=== PATIENT | female | born 1955 | race Caucasian/White ===

== ENCOUNTER 2018-10-27 07:10 | Inpatient (IN) | payer BC ==
[2018-10-27 08:28] LABS: INR 0.94; PROTIME 12.7 Sec (11.9-14.9)
[2018-10-27 08:29] LABS: PARTIAL THROMBOPLASTIN TIME 29.9 Sec (23.0-35.0)
[2018-10-27] MEDS ORDERED: CEFAZOLIN 2 GM/50 ML (PMX) 50 ML IVPB (08:30)
[2018-10-27] MEDS: SOD CHLORIDE 0.9% 1,000 ML IV (10:10)
[2018-10-27] MEDS ORDERED: ISOSULFAN BLUE 1% 5 ML INJ SC (12:02)
[2018-10-27] MEDS ORDERED: CEFAZOLIN 1 GM INJ (12:14)
[2018-10-27] MEDS ORDERED: PROPOFOL 20 ML (12:14)
[2018-10-27] MEDS ORDERED: MIDAZOLAM 1 MG/ML 2 ML INJ (12:15)
[2018-10-27] MEDS ORDERED: DEXAMETHASONE 4 MG/ML 5 ML INJ (12:16)
[2018-10-27] MEDS ORDERED: ONDANSETRON 4 MG INJ (12:17)
[2018-10-27] MEDS: ISOSULFAN BLUE 1% 5 ML INJ SC (12:47)
[2018-10-27] MEDS: HYDROmorphONE 1 MG/5 ML IV SYRINGE IV ×3 (15:15→17:37)
[2018-10-27] MEDS: ONDANSETRON 4 MG INJ IV (15:15)
[2018-10-27] MEDS ORDERED: HYDROCODONE/APAP (7.5/325) TAB GTB (18:00)
[2018-10-27] MEDS: D5W-0.45 NACL + KCL 20 MEQ 1,000 ML IV ×2 (18:26→21:42)
[2018-10-27 19:21] LABS: BLOOD UREA NITROGEN 15 mg/dl (7-20)
[2018-10-27] MEDS: HYDROmorphONE 0.5 MG/0.5 ML SYG IV (20:52)
[2018-10-27] MEDS: ENOXAPARIN 100 MG/ML SYG SC (21:02)
[2018-10-27] MEDS: WARFARIN 3 MG TAB PO (22:13)
[2018-10-28] MEDS: D5W-0.45 NACL + KCL 20 MEQ 1,000 ML IV (02:45)
[2018-10-28 06:53] LABS: WHITE BLOOD COUNT 9.6 10^3/ul (4.8-10.8)
[2018-10-28 06:53] LABS: ADD MAN DIFF? NO; BASOPHILS % 0.1 % (0.0-2.0); HEMATOCRIT 38.3 % (37.0-47.0); HEMOGLOBIN 12.6 g/dl (12.0-16.0); LYMPHOCYTES # 1.3 10^3/ul (0.8-2.9); LYMPHOCYTES % 13.9 % (15.0-51.0); MEAN CORPUSCULAR HEMOGLOBIN 28.8 pg (29.0-33.0); MEAN CORPUSCULAR HGB CONC 32.9 g/dl (32.0-37.0); MEAN CORPUSCULAR VOLUME 87.6 fl (82.0-101.0); MEAN PLATELET VOLUME 9.6 fl (7.4-10.4); MONOCYTE # 0.6 10^3/ul (0.3-0.9); MONOCYTES % 6.1 % (0.0-11.0); NEUTROPHIL # 7.6 10^3/ul (1.6-7.5); NEUTROPHILS % 79.6 % (39.0-77.0); PLATELET COUNT 200 10^3/UL (140-415); RED BLOOD COUNT 4.37 10^6/ul (4.20-5.40); RED CELL DISTRIBUTION WIDTH 12.3 % (11.5-14.5)
[2018-10-28 07:12] LABS: ALANINE AMINOTRANSFERASE 30 IU/L (13-69); ALBUMIN 3.8 g/dl (3.3-4.9); ALBUMIN/GLOBULIN RATIO 1.31; ALKALINE PHOSPHATASE 60 IU/L (42-121); ANION GAP 6 (5-13); ASPARTATE AMINO TRANSFERASE 23 IU/L (15-46); BLOOD UREA NITROGEN 16 mg/dl (7-20); CALCIUM 8.3 mg/dl (8.4-10.2); CARBON DIOXIDE 26 mmol/L (21-31); CHLORIDE 106 mmol/L (97-110); CREATININE 0.71 mg/dl (0.44-1.00); Estimated GFR > 60 mL/min (>60); GLUCOSE 146 mg/dl (70-220); POTASSIUM 4.5 mmol/L (3.5-5.1); SODIUM 138 mmol/L (135-144); TOTAL PROTEIN 6.7 g/dl (6.1-8.1)
[2018-10-28 07:15] LABS: INR 1.03; PROTIME 13.6 Sec (11.9-14.9); PT RATIO 1.1
[2018-10-28] MEDS: ENOXAPARIN 100 MG/ML SYG SC ×2 (09:32→20:38)
[2018-10-28] MEDS: HYDROmorphONE 0.5 MG/0.5 ML SYG IV (17:33)
[2018-10-28] MEDS: WARFARIN 3 MG TAB GTB (17:34)
[2018-10-29] MEDS: HYDROmorphONE 0.5 MG/0.5 ML SYG IV (04:34)
[2018-10-29 05:56] LABS: INR 1.52; PROTIME 18.4 Sec (11.9-14.9); PT RATIO 1.4
[2018-10-29] MEDS: ENOXAPARIN 100 MG/ML SYG SC ×2 (09:12→20:58)
[2018-10-29] MEDS: ONDANSETRON 4 MG INJ IV ×2 (09:31→22:00)
[2018-10-29] MEDS: SOD CHLORIDE 0.9% 1,000 ML IV ×2 (10:47→14:44)
[2018-10-29] MEDS: KETOROLAC 30 MG INJ IV ×2 (10:48→22:01)
[2018-10-29] MEDS: DOCUSATE SODIUM 100 MG CAP PO (16:20)
[2018-10-29] MEDS: WARFARIN 3 MG TAB GTB (16:49)
[2018-10-29 17:08] LABS: ADD MAN DIFF? NO
[2018-10-29 17:16] LABS: BASOPHIL # 0.1 10^3/ul (0.0-0.1); BASOPHILS % 0.7 % (0.0-2.0); EOSINOPHILS # 0.1 10^3/ul (0.0-0.5); EOSINOPHILS % 0.6 % (0.0-7.0); HEMATOCRIT 36.8 % (37.0-47.0); HEMOGLOBIN 11.8 g/dl (12.0-16.0); LYMPHOCYTES # 2.7 10^3/ul (0.8-2.9); LYMPHOCYTES % 27.5 % (15.0-51.0); MEAN CORPUSCULAR HEMOGLOBIN 29.2 pg (29.0-33.0); MEAN CORPUSCULAR HGB CONC 32.1 g/dl (32.0-37.0); MEAN CORPUSCULAR VOLUME 91.1 fl (82.0-101.0); MEAN PLATELET VOLUME 10.2 fl (7.4-10.4); MONOCYTE # 0.8 10^3/ul (0.3-0.9); MONOCYTES % 8.2 % (0.0-11.0); NEUTROPHILS % 62.6 % (39.0-77.0); PLATELET COUNT 204 10^3/UL (140-415); RED BLOOD COUNT 4.04 10^6/ul (4.20-5.40); RED CELL DISTRIBUTION WIDTH 12.8 % (11.5-14.5)
[2018-10-29 17:16] LABS: WHITE BLOOD COUNT 9.7 10^3/ul (4.8-10.8)
[2018-10-29 22:46] LABS: HEMATOCRIT 32.2 % (37.0-47.0); HEMOGLOBIN 10.5 g/dl (12.0-16.0)
[2018-10-30] MEDS: PANTOPRAZOLE (EC) 40 MG TAB PO (05:16)
[2018-10-30 05:20] LABS: ADD MAN DIFF? NO
[2018-10-30 05:31] LABS: BASOPHILS % 0.5 % (0.0-2.0); EOSINOPHILS # 0.1 10^3/ul (0.0-0.5); EOSINOPHILS % 1.2 % (0.0-7.0); HEMATOCRIT 30.6 % (37.0-47.0); HEMOGLOBIN 10.1 g/dl (12.0-16.0); LYMPHOCYTES % 24.7 % (15.0-51.0); MEAN CORPUSCULAR HEMOGLOBIN 29.3 pg (29.0-33.0); MEAN CORPUSCULAR VOLUME 88.7 fl (82.0-101.0); MEAN PLATELET VOLUME 9.7 fl (7.4-10.4); MONOCYTE # 0.8 10^3/ul (0.3-0.9); MONOCYTES % 9.5 % (0.0-11.0); NEUTROPHIL # 5.2 10^3/ul (1.6-7.5); NEUTROPHILS % 63.7 % (39.0-77.0); PLATELET COUNT 171 10^3/UL (140-415); RED BLOOD COUNT 3.45 10^6/ul (4.20-5.40); RED CELL DISTRIBUTION WIDTH 12.9 % (11.5-14.5)
[2018-10-30 05:31] LABS: WHITE BLOOD COUNT 8.1 10^3/ul (4.8-10.8)
[2018-10-30 05:51] LABS: INR 1.46; PROTIME 17.8 Sec (11.9-14.9); PT RATIO 1.4
[2018-10-30 05:52] LABS: ANION GAP 5 (5-13); BLOOD UREA NITROGEN 18 mg/dl (7-20); CALCIUM 7.9 mg/dl (8.4-10.2); CARBON DIOXIDE 27 mmol/L (21-31); CHLORIDE 107 mmol/L (97-110); CREATININE 0.71 mg/dl (0.44-1.00); Estimated GFR > 60 mL/min (>60); GLUCOSE 110 mg/dl (70-220); POTASSIUM 4.2 mmol/L (3.5-5.1); SODIUM 139 mmol/L (135-144)
[2018-10-30] MEDS: HYDROmorphONE 0.5 MG/0.5 ML SYG IV ×3 (08:48→21:14)
[2018-10-30] MEDS: ONDANSETRON 4 MG INJ IV ×3 (08:48→21:14)
[2018-10-30] MEDS: SOD CHLORIDE 0.9% 1,000 ML IV ×2 (08:53→23:20)
[2018-10-30] MEDS: ENOXAPARIN 100 MG/ML SYG SC ×3 (09:00→21:20)
[2018-10-30] MEDS: KETOROLAC 30 MG INJ IV ×2 (10:52→19:43)
[2018-10-30] MEDS: GABAPENTIN 100 MG CAP PO ×2 (12:28→21:14)
[2018-10-30 14:45] LABS: HEMATOCRIT 28.4 % (37.0-47.0); HEMOGLOBIN 9.5 g/dl (12.0-16.0)
[2018-10-30] MEDS: WARFARIN 3 MG TAB GTB (17:22)
[2018-10-30 23:22] LABS: HEMATOCRIT 25.6 % (37.0-47.0); HEMOGLOBIN 8.4 g/dl (12.0-16.0)
[2018-10-31] MEDS: SOD CHLORIDE 0.9% 1,000 ML IV ×2 (02:03→03:33)
[2018-10-31] MEDS: SOD CHLORIDE 0.9% 500 ML IV (03:34)
[2018-10-31] MEDS: PANTOPRAZOLE (EC) 40 MG TAB PO (05:18)
[2018-10-31] MEDS: GABAPENTIN 100 MG CAP PO ×3 (08:48→21:33)
[2018-10-31] MEDS: ONDANSETRON 4 MG INJ IV ×2 (09:26→17:09)
[2018-10-31] MEDS: HYDROmorphONE 0.5 MG/0.5 ML SYG IV ×5 (09:27→21:55)
[2018-10-31 10:14] LABS: ADD MAN DIFF? NO
[2018-10-31 10:18] LABS: WHITE BLOOD COUNT 12.1 10^3/ul (4.8-10.8)
[2018-10-31 10:18] LABS: BASOPHIL # 0.1 10^3/ul (0.0-0.1); BASOPHILS % 0.4 % (0.0-2.0); EOSINOPHILS # 0.1 10^3/ul (0.0-0.5); EOSINOPHILS % 0.7 % (0.0-7.0); HEMATOCRIT 26.1 % (37.0-47.0); HEMOGLOBIN 8.9 g/dl (12.0-16.0); LYMPHOCYTES # 2.5 10^3/ul (0.8-2.9); LYMPHOCYTES % 20.5 % (15.0-51.0); MEAN CORPUSCULAR HEMOGLOBIN 29.6 pg (29.0-33.0); MEAN CORPUSCULAR HGB CONC 34.1 g/dl (32.0-37.0); MEAN CORPUSCULAR VOLUME 86.7 fl (82.0-101.0); MEAN PLATELET VOLUME 10.4 fl (7.4-10.4); MONOCYTE # 1.1 10^3/ul (0.3-0.9); MONOCYTES % 8.9 % (0.0-11.0); NEUTROPHIL # 8.3 10^3/ul (1.6-7.5); NEUTROPHILS % 68.8 % (39.0-77.0); PLATELET COUNT 176 10^3/UL (140-415); RED BLOOD COUNT 3.01 10^6/ul (4.20-5.40); RED CELL DISTRIBUTION WIDTH 13.6 % (11.5-14.5)
[2018-10-31 10:38] LABS: INR 1.61; PROTIME 19.2 Sec (11.9-14.9); PT RATIO 1.5
[2018-10-31 11:26] LABS: ADD UMIC NO; UR ASCORBIC ACID NEGATIVE (NEGATIVE); UR BILIRUBIN (Dip) NEGATIVE (NEGATIVE); UR BLOOD (Dip) NEGATIVE (NEGATIVE); UR CLARITY CLEAR (CLEAR); UR COLOR YELLOW (YELLOW); UR GLUCOSE (Dip) NEGATIVE (NEGATIVE); UR KETONES (Dip) TRACE mg/dL (NEGATIVE); UR LEUKOCYTE ESTERASE (Dip) NEGATIVE Leu/ul (NEGATIVE); UR NITRITE (Dip) NEGATIVE (NEGATIVE); UR SPECIFIC GRAVITY (Dip) 1.015 (1.003-1.030); UR TOTAL PROTEIN (Dip) NEGATIVE (NEGATIVE); UR UROBILINOGEN (Dip) NEGATIVE (NEGATIVE)
[2018-10-31] MEDS ORDERED: VANCOMYCIN IV PER PHARMACY XX (11:30)
[2018-10-31] MEDS: PIPER-TAZO 3.375 GM IV (PMX) 100 ML IVPB ×2 (12:10→17:09)
[2018-10-31] MEDS: KETOROLAC 30 MG INJ IV (12:16)
[2018-10-31 12:19] LABS: POST-TRANSFUSION BILIRUBIN 1.2 mg/dl
[2018-10-31 12:19] LABS: PRETRANSFUSION BILIRUBIN 0.6 mg/dl
[2018-10-31] MEDS: VANCOMYCIN HCL 1.25 GM in SOD CHLORIDE 0.9% 250 ML IVPB (12:53)
[2018-10-31] MEDS: DIAZEPAM 5 MG TAB PO (13:43)
[2018-10-31] MEDS ORDERED: DIAZEPAM 2 MG TAB PO (14:00)
[2018-10-31 16:25] LABS: HEMATOCRIT 23.5 % (37.0-47.0); HEMOGLOBIN 7.8 g/dl (12.0-16.0)
[2018-10-31] MEDS: DOCUSATE SODIUM 100 MG CAP PO (17:30)
[2018-10-31 17:51] LABS: PROCALCITONIN 0.11 ng/mL (0.00-0.10)
[2018-10-31] MEDS: CYCLOBENZAPRINE 10 MG TAB PO (21:32)
[2018-11-01] MEDS: PIPER-TAZO 3.375 GM IV (PMX) 100 ML IVPB ×5 (00:40→23:48)
[2018-11-01 01:12] LABS: HEMATOCRIT 21.7 % (37.0-47.0); HEMOGLOBIN 7.1 g/dl (12.0-16.0)
[2018-11-01] MEDS: VANCOMYCIN 750 MG (PMX) 250 ML IVPB ×2 (01:29→12:21)
[2018-11-01] MEDS: SOD CHLORIDE 0.9% 1,000 ML IV (04:05)
[2018-11-01 05:37] LABS: ADD MAN DIFF? NO
[2018-11-01 05:47] LABS: ABNORMAL IP MESSAGE 1; BASOPHILS % 0.4 % (0.0-2.0); EOSINOPHILS # 0.2 10^3/ul (0.0-0.5); HEMATOCRIT 19.9 % (37.0-47.0); LYMPHOCYTES # 1.9 10^3/ul (0.8-2.9); LYMPHOCYTES % 22.6 % (15.0-51.0); MEAN CORPUSCULAR HGB CONC 32.7 g/dl (32.0-37.0); MEAN CORPUSCULAR VOLUME 88.8 fl (82.0-101.0); MEAN PLATELET VOLUME 10.1 fl (7.4-10.4); MONOCYTES % 11.3 % (0.0-11.0); NEUTROPHIL # 5.3 10^3/ul (1.6-7.5); NEUTROPHILS % 62.6 % (39.0-77.0); PLATELET COUNT 140 10^3/UL (140-415); RED BLOOD COUNT 2.24 10^6/ul (4.20-5.40); RED CELL DISTRIBUTION WIDTH 14.2 % (11.5-14.5)
[2018-11-01 05:47] LABS: WHITE BLOOD COUNT 8.4 10^3/ul (4.8-10.8)
[2018-11-01] MEDS: PANTOPRAZOLE (EC) 40 MG TAB PO (05:54)
[2018-11-01 06:05] LABS: INR 1.76; PROTIME 20.6 Sec (11.9-14.9); PT RATIO 1.6
[2018-11-01 06:41] LABS: ANION GAP 2 (5-13); BLOOD UREA NITROGEN 15 mg/dl (7-20); CALCIUM 7.2 mg/dl (8.4-10.2); CARBON DIOXIDE 29 mmol/L (21-31); CHLORIDE 106 mmol/L (97-110); CREATININE 0.77 mg/dl (0.44-1.00); Estimated GFR > 60 mL/min (>60); GLUCOSE 110 mg/dl (70-220); POSITIVE DIFF @See below; POTASSIUM 3.9 mmol/L (3.5-5.1); SODIUM 137 mmol/L (135-144)
[2018-11-01 06:43] LABS: HEMOGLOBIN 6.5 g/dl (12.0-16.0)
[2018-11-01] MEDS: GABAPENTIN 100 MG CAP PO ×3 (08:41→21:03)
[2018-11-01] MEDS: CYCLOBENZAPRINE 10 MG TAB PO ×2 (08:41→21:02)
[2018-11-01] MEDS: ONDANSETRON 4 MG INJ IV ×2 (08:42→16:43)
[2018-11-01] MEDS: HYDROmorphONE 0.5 MG/0.5 ML SYG IV ×3 (08:42→15:16)
[2018-11-01 08:54] LABS: HEMATOCRIT 21.9 % (37.0-47.0); HEMOGLOBIN 7.1 g/dl (12.0-16.0)
[2018-11-01 09:06] LABS: ANISOCYTOSIS 1+ (0-0); BASOPHILS % (M) 1 % (0-2); EOSINOPHILS % (M) 6 % (0-7); ERYTHROBLAST% (NRBC) (M) 1 % (0-0); GIANT THROMBO% (M) 3 % (0-0); LYMPHOCYTES #M 1.5 10^3/ul (0.8-2.9); LYMPHOCYTES % (M) 18 % (15-51); MICROCYTOSIS 1+ (0-0); MONOCYTE #M 0.1 10^3/ul (0.3-0.9); MONOCYTES % (M) 2 % (0-11); PLATELET ESTIMATE NORMAL; POLYCHROMASIA 1+ (0-0); SEGMENTED NEUTROPHILS (M) % 73 % (39-77); SMUDGE%M 12 % (0-0)
[2018-11-01] MEDS: DOCUSATE SODIUM 100 MG CAP PO (11:54)
[2018-11-01] MEDS: ACETAMINOPHEN 325 MG TAB PO ×2 (12:20→19:28)
[2018-11-01 15:40] LABS: IMMEDIATE SPIN CROSSMATCH 1 4
[2018-11-01] MEDS: SACCHAROMYCES BOULARDII 250 MG CAP PO ×2 (16:44→21:03)
[2018-11-01 19:15] LABS: HEMATOCRIT 27.6 % (37.0-47.0)
[2018-11-01] MEDS: IBUPROFEN 600 MG TAB PO (21:30)
[2018-11-01 23:12] LABS: ADD UMIC YES; UR ASCORBIC ACID NEGATIVE (NEGATIVE); UR BACTERIA FEW /HPF (NONE SEEN); UR BILIRUBIN (Dip) NEGATIVE (NEGATIVE); UR BLOOD (Dip) 1+ mg/dL (NEGATIVE); UR CLARITY CLEAR (CLEAR); UR COLOR YELLOW (YELLOW); UR GLUCOSE (Dip) NEGATIVE (NEGATIVE); UR KETONES (Dip) NEGATIVE (NEGATIVE); UR LEUKOCYTE ESTERASE (Dip) NEGATIVE Leu/ul (NEGATIVE); UR NITRITE (Dip) NEGATIVE (NEGATIVE); UR RBC 0 /HPF (0-5); UR TOTAL PROTEIN (Dip) NEGATIVE (NEGATIVE); UR UROBILINOGEN (Dip) 1+ mg/dL (NEGATIVE); UR WBC 2 /HPF (0-5)
[2018-11-01 23:55] LABS: PRETRANSFUSION BILIRUBIN 0.6 mg/dl
[2018-11-01 23:55] LABS: POST-TRANSFUSION BILIRUBIN 1.2 mg/dl
[2018-11-02 00:57] LABS: VANCOMYCIN,TROUGH 7.5 ug/ml (10.0-20.0)
[2018-11-02] MEDS: VANCOMYCIN 750 MG (PMX) 250 ML IVPB ×3 (01:08→17:00)
[2018-11-02] MEDS: PANTOPRAZOLE (EC) 40 MG TAB PO (05:57)
[2018-11-02] MEDS: PIPER-TAZO 3.375 GM IV (PMX) 100 ML IVPB ×3 (05:57→18:06)
[2018-11-02 06:12] LABS: ADD MAN DIFF? NO
[2018-11-02 06:20] LABS: WHITE BLOOD COUNT 10.9 10^3/ul (4.8-10.8)
[2018-11-02 06:20] LABS: BASOPHIL # 0.1 10^3/ul (0.0-0.1); BASOPHILS % 0.5 % (0.0-2.0); EOSINOPHILS # 0.2 10^3/ul (0.0-0.5); EOSINOPHILS % 1.8 % (0.0-7.0); HEMATOCRIT 26.1 % (37.0-47.0); HEMOGLOBIN 8.7 g/dl (12.0-16.0); LYMPHOCYTES # 1.3 10^3/ul (0.8-2.9); LYMPHOCYTES % 12.4 % (15.0-51.0); MEAN CORPUSCULAR HEMOGLOBIN 29.3 pg (29.0-33.0); MEAN CORPUSCULAR HGB CONC 33.3 g/dl (32.0-37.0); MEAN CORPUSCULAR VOLUME 87.9 fl (82.0-101.0); MEAN PLATELET VOLUME 10.1 fl (7.4-10.4); MONOCYTE # 1.1 10^3/ul (0.3-0.9); MONOCYTES % 10.2 % (0.0-11.0); NEUTROPHIL # 8.1 10^3/ul (1.6-7.5); NEUTROPHILS % 74.2 % (39.0-77.0); NUCLEATED RED BLOOD CELLS% 0.4 /100WBC (0.0-0.0); PLATELET COUNT 155 10^3/UL (140-415); RED BLOOD COUNT 2.97 10^6/ul (4.20-5.40); RED CELL DISTRIBUTION WIDTH 13.7 % (11.5-14.5)
[2018-11-02 06:41] LABS: ANION GAP 4 (5-13); BLOOD UREA NITROGEN 13 mg/dl (7-20); CALCIUM 7.5 mg/dl (8.4-10.2); CARBON DIOXIDE 27 mmol/L (21-31); CHLORIDE 105 mmol/L (97-110); CREATININE 0.68 mg/dl (0.44-1.00); Estimated GFR > 60 mL/min (>60); GLUCOSE 125 mg/dl (70-220); POTASSIUM 3.7 mmol/L (3.5-5.1); SODIUM 136 mmol/L (135-144)
[2018-11-02] MEDS: SACCHAROMYCES BOULARDII 250 MG CAP PO ×2 (08:20→20:19)
[2018-11-02] MEDS: ACETAMINOPHEN 325 MG TAB PO (08:21)
[2018-11-02] MEDS: GABAPENTIN 100 MG CAP PO ×3 (08:21→20:21)
[2018-11-02] MEDS: CYCLOBENZAPRINE 10 MG TAB PO ×2 (08:21→20:19)
[2018-11-02 11:03] LABS: HEMATOCRIT 26.8 % (37.0-47.0); HEMOGLOBIN 8.8 g/dl (12.0-16.0)
[2018-11-02 14:26] LABS: ADD MAN DIFF? NO
[2018-11-02 14:28] LABS: WHITE BLOOD COUNT 10.9 10^3/ul (4.8-10.8)
[2018-11-02 14:28] LABS: BASOPHIL # 0.1 10^3/ul (0.0-0.1); BASOPHILS % 0.5 % (0.0-2.0); EOSINOPHILS # 0.2 10^3/ul (0.0-0.5); EOSINOPHILS % 1.9 % (0.0-7.0); HEMATOCRIT 26.6 % (37.0-47.0); HEMOGLOBIN 8.5 g/dl (12.0-16.0); LYMPHOCYTES # 1.6 10^3/ul (0.8-2.9); LYMPHOCYTES % 14.5 % (15.0-51.0); MEAN CORPUSCULAR HEMOGLOBIN 28.5 pg (29.0-33.0); MEAN CORPUSCULAR VOLUME 89.3 fl (82.0-101.0); MEAN PLATELET VOLUME 9.7 fl (7.4-10.4); MONOCYTE # 1.2 10^3/ul (0.3-0.9); MONOCYTES % 11.2 % (0.0-11.0); NEUTROPHIL # 7.7 10^3/ul (1.6-7.5); NEUTROPHILS % 70.8 % (39.0-77.0); NUCLEATED RED BLOOD CELLS% 0.2 /100WBC (0.0-0.0); PLATELET COUNT 174 10^3/UL (140-415); RED BLOOD COUNT 2.98 10^6/ul (4.20-5.40)
[2018-11-02 14:48] LABS: PARTIAL THROMBOPLASTIN TIME 25.2 Sec (23.0-35.0)
[2018-11-02] MEDS: HYDROmorphONE 0.5 MG/0.5 ML SYG IV ×2 (15:42→18:18)
[2018-11-02] MEDS: MAGNESIUM HYDROXIDE 30ML CUP PO (15:48)
[2018-11-02] MEDS: ONDANSETRON 4 MG INJ IV (18:23)
[2018-11-02] MEDS: IOHEXOL 300MG/ML 150 ML BTL (19:03)
[2018-11-02] MEDS: SOD CHLORIDE 0.9% 100 ML (19:03)
[2018-11-02] MEDS: IOHEXOL 300MG/ML 30 ML BTL (19:03)
[2018-11-02] MEDS: HEPARIN 25000 UNITS/250 ML 250 ML IV (23:09)
[2018-11-03] MEDS: PIPER-TAZO 3.375 GM IV (PMX) 100 ML IVPB ×5 (00:14→23:38)
[2018-11-03] MEDS: VANCOMYCIN 750 MG (PMX) 250 ML IVPB ×2 (01:08→09:05)
[2018-11-03] MEDS: PANTOPRAZOLE (EC) 40 MG TAB PO (05:20)
[2018-11-03] MEDS: DOCUSATE SODIUM 100 MG CAP PO ×2 (05:29→08:45)
[2018-11-03 05:53] LABS: ADD MAN DIFF? NO
[2018-11-03 06:01] LABS: WHITE BLOOD COUNT 9.4 10^3/ul (4.8-10.8)
[2018-11-03 06:01] LABS: BASOPHIL # 0.1 10^3/ul (0.0-0.1); BASOPHILS % 0.5 % (0.0-2.0); EOSINOPHILS # 0.3 10^3/ul (0.0-0.5); EOSINOPHILS % 3.1 % (0.0-7.0); HEMATOCRIT 24.4 % (37.0-47.0); HEMOGLOBIN 7.9 g/dl (12.0-16.0); LYMPHOCYTES # 1.6 10^3/ul (0.8-2.9); LYMPHOCYTES % 17.2 % (15.0-51.0); MEAN CORPUSCULAR HEMOGLOBIN 28.7 pg (29.0-33.0); MEAN CORPUSCULAR HGB CONC 32.4 g/dl (32.0-37.0); MEAN CORPUSCULAR VOLUME 88.7 fl (82.0-101.0); MONOCYTES % 10.1 % (0.0-11.0); NEUTROPHIL # 6.4 10^3/ul (1.6-7.5); PLATELET COUNT 193 10^3/UL (140-415); RED BLOOD COUNT 2.75 10^6/ul (4.20-5.40); RED CELL DISTRIBUTION WIDTH 13.8 % (11.5-14.5)
[2018-11-03 06:27] LABS: PARTIAL THROMBOPLASTIN TIME 56.9 Sec (23.0-35.0)
[2018-11-03 06:33] LABS: ANION GAP 2 (5-13); BLOOD UREA NITROGEN 14 mg/dl (7-20); CALCIUM 7.6 mg/dl (8.4-10.2); CARBON DIOXIDE 29 mmol/L (21-31); CHLORIDE 106 mmol/L (97-110); CREATININE 0.83 mg/dl (0.44-1.00); Estimated GFR > 60 mL/min (>60); GLUCOSE 112 mg/dl (70-220); INR 1.14; POTASSIUM 3.9 mmol/L (3.5-5.1); PROTIME 14.7 Sec (11.9-14.9); PT RATIO 1.1; SODIUM 137 mmol/L (135-144)
[2018-11-03] MEDS: HEPARIN 25000 UNITS/250 ML 250 ML IV (06:39)
[2018-11-03] MEDS: CYCLOBENZAPRINE 10 MG TAB PO ×2 (08:45→20:10)
[2018-11-03] MEDS: GABAPENTIN 100 MG CAP PO ×3 (08:45→20:10)
[2018-11-03] MEDS: SACCHAROMYCES BOULARDII 250 MG CAP PO ×2 (08:45→20:10)
[2018-11-03] MEDS: ONDANSETRON 4 MG INJ IV ×2 (08:45→21:45)
[2018-11-03] MEDS: SENNA/DOCUSATE NA (8.6MG/50MG) TAB PO (08:45)
[2018-11-03] MEDS: HYDROmorphONE 0.5 MG/0.5 ML SYG IV (08:46)
[2018-11-03 08:59] LABS: VANCOMYCIN,TROUGH 16.8 ug/ml (10.0-20.0)
[2018-11-03] MEDS: CHOLECALCIFEROL 2,000 UNIT CAP PO (12:41)
[2018-11-03] MEDS: ACETAMINOPHEN 325 MG TAB PO (12:42)
[2018-11-03 14:53] LABS: PARTIAL THROMBOPLASTIN TIME 38.6 Sec (23.0-35.0)
[2018-11-03] MEDS ORDERED: HEPARIN 5,000 UNIT/1 ML VIAL SC (16:00)
[2018-11-03] MEDS: HEPARIN 1000 UNITS/ML 10 ML INJ IV (16:25)
[2018-11-03] MEDS: VANCOMYCIN 500 MG (PMX) 100 ML IVPB (17:00)
[2018-11-03] MEDS ORDERED: HYDROCODONE/APAP (5/325) TAB PO (17:00)
[2018-11-03] MEDS: KETOROLAC 15 MG INJ IV (21:45)
[2018-11-03 22:42] LABS: PARTIAL THROMBOPLASTIN TIME 47.2 Sec (23.0-35.0)
[2018-11-04] MEDS: HEPARIN 25000 UNITS/250 ML 250 ML IV ×2 (01:12→17:30)
[2018-11-04] MEDS: PIPER-TAZO 3.375 GM IV (PMX) 100 ML IVPB ×4 (05:29→23:18)
[2018-11-04] MEDS: PANTOPRAZOLE (EC) 40 MG TAB PO (05:30)
[2018-11-04] MEDS: KETOROLAC 15 MG INJ IV ×3 (05:36→22:53)
[2018-11-04 06:09] LABS: ADD MAN DIFF? NO
[2018-11-04 06:15] LABS: BASOPHILS % 0.5 % (0.0-2.0); EOSINOPHILS # 0.3 10^3/ul (0.0-0.5); EOSINOPHILS % 4.8 % (0.0-7.0); HEMATOCRIT 23.9 % (37.0-47.0); HEMOGLOBIN 7.7 g/dl (12.0-16.0); LYMPHOCYTES # 1.2 10^3/ul (0.8-2.9); LYMPHOCYTES % 20.2 % (15.0-51.0); MEAN CORPUSCULAR HEMOGLOBIN 29.1 pg (29.0-33.0); MEAN CORPUSCULAR HGB CONC 32.2 g/dl (32.0-37.0); MEAN CORPUSCULAR VOLUME 90.2 fl (82.0-101.0); MEAN PLATELET VOLUME 9.8 fl (7.4-10.4); MONOCYTE # 0.6 10^3/ul (0.3-0.9); MONOCYTES % 10.8 % (0.0-11.0); NEUTROPHIL # 3.7 10^3/ul (1.6-7.5); NEUTROPHILS % 62.5 % (39.0-77.0); PLATELET COUNT 193 10^3/UL (140-415); RED BLOOD COUNT 2.65 10^6/ul (4.20-5.40); RED CELL DISTRIBUTION WIDTH 13.5 % (11.5-14.5)
[2018-11-04 06:15] LABS: WHITE BLOOD COUNT 5.9 10^3/ul (4.8-10.8)
[2018-11-04 06:31] LABS: INR 1.18; PROTIME 15.1 Sec (11.9-14.9); PT RATIO 1.2
[2018-11-04 07:30] LABS: PARTIAL THROMBOPLASTIN TIME 103.4 Sec (23.0-35.0)
[2018-11-04 08:06] LABS: ANION GAP 12 (5-13); BLOOD UREA NITROGEN 11 mg/dl (7-20); CALCIUM 6.2 mg/dl (8.4-10.2); CARBON DIOXIDE 23 mmol/L (21-31); CHLORIDE 114 mmol/L (97-110); CREATININE 0.54 mg/dl (0.44-1.00); Estimated GFR > 60 mL/min (>60); GLUCOSE 87 mg/dl (70-220); POTASSIUM 3.4 mmol/L (3.5-5.1); SODIUM 149 mmol/L (135-144)
[2018-11-04] MEDS: CHOLECALCIFEROL 2,000 UNIT CAP PO (08:11)
[2018-11-04] MEDS: GABAPENTIN 100 MG CAP PO ×3 (08:11→20:11)
[2018-11-04] MEDS: CYCLOBENZAPRINE 10 MG TAB PO ×2 (08:11→20:10)
[2018-11-04] MEDS: SACCHAROMYCES BOULARDII 250 MG CAP PO ×2 (08:12→20:11)
[2018-11-04] MEDS: SENNA/DOCUSATE NA (8.6MG/50MG) TAB PO ×2 (08:27→20:10)
[2018-11-04] MEDS: DOCUSATE SODIUM 100 MG CAP PO (08:27)
[2018-11-04] MEDS: MAGNESIUM HYDROXIDE 30ML CUP PO (08:27)
[2018-11-04] MEDS: POTASSIUM CHLORIDE (SR) 20 MEQ TAB PO (10:41)
[2018-11-04] MEDS: ACETAMINOPHEN 325 MG TAB PO (11:58)
[2018-11-04 12:05] LABS: IMMEDIATE SPIN CROSSMATCH 1 2
[2018-11-04] MEDS: LIDOCAINE 1% (MPF) 5 ML VIAL SC (13:00)
[2018-11-04 16:27] LABS: HEMATOCRIT 32.8 % (37.0-47.0); HEMOGLOBIN 10.7 g/dl (12.0-16.0)
[2018-11-04] MEDS: MINERAL OIL 30ML CUP PO ×2 (16:30→21:45)
[2018-11-04 16:47] LABS: PARTIAL THROMBOPLASTIN TIME 35.9 Sec (23.0-35.0)
[2018-11-04] MEDS: MAGNESIUM CITRATE 300 ML BTL PO (16:53)
[2018-11-04] MEDS ORDERED: HEPARIN 1000 UNITS/ML 10 ML INJ IV (17:30)
[2018-11-04] MEDS: LUBIPROSTONE 24 MCG CAP PO (20:11)
[2018-11-04 21:13] LABS: PARTIAL THROMBOPLASTIN TIME 51.3 Sec (23.0-35.0)
[2018-11-04] MEDS: IOHEXOL 14.3 MG(I)/ML (ADULT) BTL PO (21:50)
[2018-11-05] MEDS: ACETAMINOPHEN 325 MG TAB PO ×2 (01:09→22:14)
[2018-11-05 03:51] LABS: ADD MAN DIFF? NO
[2018-11-05 04:11] LABS: BASOPHIL # 0.1 10^3/ul (0.0-0.1); BASOPHILS % 0.9 % (0.0-2.0); EOSINOPHILS # 0.3 10^3/ul (0.0-0.5); HEMATOCRIT 31.9 % (37.0-47.0); HEMOGLOBIN 10.4 g/dl (12.0-16.0); LYMPHOCYTES # 1.3 10^3/ul (0.8-2.9); LYMPHOCYTES % 19.6 % (15.0-51.0); MEAN CORPUSCULAR HEMOGLOBIN 29.1 pg (29.0-33.0); MEAN CORPUSCULAR HGB CONC 32.6 g/dl (32.0-37.0); MEAN CORPUSCULAR VOLUME 89.1 fl (82.0-101.0); MEAN PLATELET VOLUME 9.8 fl (7.4-10.4); MONOCYTE # 0.6 10^3/ul (0.3-0.9); MONOCYTES % 9.1 % (0.0-11.0); NEUTROPHIL # 4.4 10^3/ul (1.6-7.5); NEUTROPHILS % 63.5 % (39.0-77.0); NUCLEATED RED BLOOD CELLS% 0.3 /100WBC (0.0-0.0); PLATELET COUNT 254 10^3/UL (140-415); RED BLOOD COUNT 3.58 10^6/ul (4.20-5.40); RED CELL DISTRIBUTION WIDTH 13.8 % (11.5-14.5)
[2018-11-05 04:11] LABS: WHITE BLOOD COUNT 6.8 10^3/ul (4.8-10.8)
[2018-11-05 04:13] LABS: PARTIAL THROMBOPLASTIN TIME 68.7 Sec (23.0-35.0)
[2018-11-05 04:21] LABS: INR 0.94; PROTIME 12.7 Sec (11.9-14.9)
[2018-11-05] MEDS: PIPER-TAZO 3.375 GM IV (PMX) 100 ML IVPB ×3 (05:51→18:53)
[2018-11-05] MEDS: PANTOPRAZOLE (EC) 40 MG TAB PO (05:51)
[2018-11-05] MEDS: MINERAL OIL 30ML CUP PO ×3 (05:52→22:00)
[2018-11-05] MEDS: LUBIPROSTONE 24 MCG CAP PO ×2 (09:00→22:09)
[2018-11-05] MEDS: SACCHAROMYCES BOULARDII 250 MG CAP PO ×2 (09:19→22:10)
[2018-11-05] MEDS: CYCLOBENZAPRINE 10 MG TAB PO ×2 (09:20→22:09)
[2018-11-05] MEDS: CHOLECALCIFEROL 2,000 UNIT CAP PO (09:20)
[2018-11-05] MEDS: GABAPENTIN 100 MG CAP PO ×3 (09:20→22:10)
[2018-11-05] MEDS: SENNA/DOCUSATE NA (8.6MG/50MG) TAB PO ×2 (09:21→22:09)
[2018-11-05 11:45] LABS: HEMATOCRIT 33.3 % (37.0-47.0); HEMOGLOBIN 10.8 g/dl (12.0-16.0)
[2018-11-05] MEDS: KETOROLAC 15 MG INJ IV (12:54)
[2018-11-05] MEDS: HEPARIN 25000 UNITS/250 ML 250 ML IV ×2 (13:00→22:07)
[2018-11-05] MEDS: ONDANSETRON 4 MG INJ IV (18:54)
[2018-11-05 19:26] LABS: HEMATOCRIT 32.6 % (37.0-47.0); HEMOGLOBIN 10.6 g/dl (12.0-16.0)
[2018-11-05 20:12] LABS: PARTIAL THROMBOPLASTIN TIME 81.3 Sec (23.0-35.0)
[2018-11-06] MEDS: PIPER-TAZO 3.375 GM IV (PMX) 100 ML IVPB ×4 (00:08→17:45)
[2018-11-06] MEDS: ACETAMINOPHEN 325 MG TAB PO ×3 (04:35→23:28)
[2018-11-06 05:19] LABS: HEMATOCRIT 35.3 % (37.0-47.0); HEMOGLOBIN 11.3 g/dl (12.0-16.0)
[2018-11-06 05:39] LABS: INR 0.94; PROTIME 12.7 Sec (11.9-14.9)
[2018-11-06 05:42] LABS: PARTIAL THROMBOPLASTIN TIME 68.5 Sec (23.0-35.0)
[2018-11-06] MEDS: MINERAL OIL 30ML CUP PO ×2 (06:00→13:01)
[2018-11-06] MEDS: PANTOPRAZOLE (EC) 40 MG TAB PO (06:09)
[2018-11-06] MEDS: HEPARIN 25000 UNITS/250 ML 250 ML IV ×3 (07:18→19:22)
[2018-11-06] MEDS: CHOLECALCIFEROL 2,000 UNIT CAP PO (08:19)
[2018-11-06] MEDS: GABAPENTIN 100 MG CAP PO ×3 (08:19→20:49)
[2018-11-06] MEDS: CYCLOBENZAPRINE 10 MG TAB PO ×2 (08:19→20:49)
[2018-11-06] MEDS: SACCHAROMYCES BOULARDII 250 MG CAP PO ×2 (08:19→20:49)
[2018-11-06] MEDS: SENNA/DOCUSATE NA (8.6MG/50MG) TAB PO (08:20)
[2018-11-06] MEDS: LUBIPROSTONE 24 MCG CAP PO (08:20)
[2018-11-06 11:24] LABS: PARTIAL THROMBOPLASTIN TIME 79.3 Sec (23.0-35.0)
[2018-11-06] MEDS: WARFARIN 3 MG TAB PO (17:45)
[2018-11-06 18:15] LABS: HEMATOCRIT 35.2 % (37.0-47.0); HEMOGLOBIN 11.2 g/dl (12.0-16.0)
[2018-11-06 18:32] LABS: PARTIAL THROMBOPLASTIN TIME 65.9 Sec (23.0-35.0)
[2018-11-07] MEDS: HYDROCORTISONE 1% 28 GM CR TOP ×3 (00:57→20:30)
[2018-11-07 01:46] LABS: PARTIAL THROMBOPLASTIN TIME 57.9 Sec (23.0-35.0)
[2018-11-07] MEDS: HEPARIN 25000 UNITS/250 ML 250 ML IV ×4 (03:16→18:55)
[2018-11-07] MEDS: PANTOPRAZOLE (EC) 40 MG TAB PO (05:55)
[2018-11-07] MEDS: ACETAMINOPHEN 325 MG TAB PO ×2 (06:02→16:34)
[2018-11-07 06:47] LABS: INR 0.91; PROTIME 12.4 Sec (11.9-14.9)
[2018-11-07 08:30] LABS: HEMATOCRIT 34.9 % (37.0-47.0); HEMOGLOBIN 11.4 g/dl (12.0-16.0)
[2018-11-07] MEDS: CHOLECALCIFEROL 2,000 UNIT CAP PO (09:05)
[2018-11-07] MEDS: SACCHAROMYCES BOULARDII 250 MG CAP PO ×2 (09:05→20:28)
[2018-11-07] MEDS: GABAPENTIN 100 MG CAP PO ×3 (09:05→20:28)
[2018-11-07] MEDS: CYCLOBENZAPRINE 10 MG TAB PO ×2 (09:06→20:28)
[2018-11-07 09:15] LABS: PARTIAL THROMBOPLASTIN TIME 79.1 Sec (23.0-35.0)
[2018-11-07] MEDS: POTASSIUM CHLORIDE (SR) 10 MEQ TAB PO (16:38)
[2018-11-07] MEDS: WARFARIN 3 MG TAB PO (16:38)
[2018-11-07 17:48] LABS: ANION GAP 6 (5-13); BLOOD UREA NITROGEN 16 mg/dl (7-20); CALCIUM 8.6 mg/dl (8.4-10.2); CARBON DIOXIDE 28 mmol/L (21-31); CHLORIDE 104 mmol/L (97-110); CREATININE 0.74 mg/dl (0.44-1.00); Estimated GFR > 60 mL/min (>60); GLUCOSE 128 mg/dl (70-220); POTASSIUM 4.1 mmol/L (3.5-5.1); SODIUM 138 mmol/L (135-144)
[2018-11-07 17:49] LABS: PARTIAL THROMBOPLASTIN TIME 88.1 Sec (23.0-35.0)
[2018-11-07 21:10] LABS: HEMATOCRIT 33.9 % (37.0-47.0)
[2018-11-08 01:02] LABS: PARTIAL THROMBOPLASTIN TIME 59.8 Sec (23.0-35.0)
[2018-11-08] MEDS: PANTOPRAZOLE (EC) 40 MG TAB PO (05:58)
[2018-11-08] MEDS: ACETAMINOPHEN 325 MG TAB PO (06:13)
[2018-11-08 06:43] LABS: ADD MAN DIFF? NO
[2018-11-08 06:55] LABS: BASOPHIL # 0.1 10^3/ul (0.0-0.1); BASOPHILS % 0.8 % (0.0-2.0); EOSINOPHILS # 0.4 10^3/ul (0.0-0.5); EOSINOPHILS % 5.1 % (0.0-7.0); HEMATOCRIT 35.1 % (37.0-47.0); HEMOGLOBIN 11.4 g/dl (12.0-16.0); LYMPHOCYTES # 1.7 10^3/ul (0.8-2.9); LYMPHOCYTES % 22.1 % (15.0-51.0); MEAN CORPUSCULAR HEMOGLOBIN 29.2 pg (29.0-33.0); MEAN CORPUSCULAR HGB CONC 32.5 g/dl (32.0-37.0); MEAN CORPUSCULAR VOLUME 89.8 fl (82.0-101.0); MEAN PLATELET VOLUME 9.2 fl (7.4-10.4); MONOCYTE # 0.7 10^3/ul (0.3-0.9); MONOCYTES % 8.8 % (0.0-11.0); NEUTROPHIL # 4.6 10^3/ul (1.6-7.5); NEUTROPHILS % 60.4 % (39.0-77.0); PLATELET COUNT 393 10^3/UL (140-415); RED BLOOD COUNT 3.91 10^6/ul (4.20-5.40); RED CELL DISTRIBUTION WIDTH 13.7 % (11.5-14.5)
[2018-11-08 06:55] LABS: WHITE BLOOD COUNT 7.6 10^3/ul (4.8-10.8)
[2018-11-08] MEDS: HEPARIN 25000 UNITS/250 ML 250 ML IV (07:07)
[2018-11-08 07:21] LABS: INR 0.92; PROTIME 12.5 Sec (11.9-14.9)
[2018-11-08 07:26] LABS: ANION GAP 7 (5-13); BLOOD UREA NITROGEN 17 mg/dl (7-20); CALCIUM 8.9 mg/dl (8.4-10.2); CARBON DIOXIDE 26 mmol/L (21-31); CHLORIDE 104 mmol/L (97-110); CREATININE 0.73 mg/dl (0.44-1.00); Estimated GFR > 60 mL/min (>60); GLUCOSE 96 mg/dl (70-220); POTASSIUM 4.3 mmol/L (3.5-5.1); SODIUM 137 mmol/L (135-144)
[2018-11-08] MEDS: [UNRECOGNIZED DRUG - REMARK] XX ×2 (08:00→16:00)
[2018-11-08] MEDS: CYCLOBENZAPRINE 10 MG TAB PO (09:00)
[2018-11-08] MEDS: SACCHAROMYCES BOULARDII 250 MG CAP PO ×2 (09:13→20:00)
[2018-11-08] MEDS: GABAPENTIN 100 MG CAP PO ×3 (09:13→20:00)
[2018-11-08] MEDS: CHOLECALCIFEROL 2,000 UNIT CAP PO (09:13)
[2018-11-08] MEDS: HYDROCORTISONE 1% 28 GM CR TOP ×2 (09:17→20:00)
[2018-11-08 10:22] LABS: HEMATOCRIT 35.8 % (37.0-47.0); HEMOGLOBIN 11.5 g/dl (12.0-16.0)
[2018-11-08 12:46] LABS: PARTIAL THROMBOPLASTIN TIME 58.1 Sec (23.0-35.0)
[2018-11-08] MEDS: WARFARIN 3 MG TAB PO (16:47)
[2018-11-08 19:51] LABS: HEMATOCRIT 35.2 % (37.0-47.0); HEMOGLOBIN 11.4 g/dl (12.0-16.0)
[2018-11-09] MEDS: PANTOPRAZOLE (EC) 40 MG TAB PO (05:31)
[2018-11-09 06:36] LABS: INR 0.96; PROTIME 12.9 Sec (11.9-14.9)
[2018-11-09 06:37] LABS: PARTIAL THROMBOPLASTIN TIME 67.7 Sec (23.0-35.0)
[2018-11-09] MEDS: [UNRECOGNIZED DRUG - REMARK] XX ×3 (08:00→15:03)
[2018-11-09] MEDS: GABAPENTIN 100 MG CAP PO ×3 (08:54→20:48)
[2018-11-09] MEDS: SACCHAROMYCES BOULARDII 250 MG CAP PO ×2 (08:54→20:48)
[2018-11-09] MEDS: CHOLECALCIFEROL 2,000 UNIT CAP PO (08:54)
[2018-11-09] MEDS: HYDROCORTISONE 1% 28 GM CR TOP ×2 (08:54→20:48)
[2018-11-09] MEDS: ACETAMINOPHEN 325 MG TAB PO ×2 (09:16→17:25)
[2018-11-09] MEDS: HEPARIN 25000 UNITS/250 ML 250 ML IV (12:43)
[2018-11-09] MEDS: WARFARIN 3 MG TAB PO (17:21)
[2018-11-10] MEDS: PANTOPRAZOLE (EC) 40 MG TAB PO (05:49)
[2018-11-10 06:43] LABS: ADD MAN DIFF? NO
[2018-11-10 06:49] LABS: BASOPHIL # 0.1 10^3/ul (0.0-0.1); BASOPHILS % 1.3 % (0.0-2.0); EOSINOPHILS # 0.3 10^3/ul (0.0-0.5); EOSINOPHILS % 5.5 % (0.0-7.0); HEMATOCRIT 36.8 % (37.0-47.0); HEMOGLOBIN 11.8 g/dl (12.0-16.0); LYMPHOCYTES # 1.6 10^3/ul (0.8-2.9); LYMPHOCYTES % 25.9 % (15.0-51.0); MEAN CORPUSCULAR HEMOGLOBIN 28.8 pg (29.0-33.0); MEAN CORPUSCULAR HGB CONC 32.1 g/dl (32.0-37.0); MEAN CORPUSCULAR VOLUME 89.8 fl (82.0-101.0); MEAN PLATELET VOLUME 9.3 fl (7.4-10.4); MONOCYTE # 0.6 10^3/ul (0.3-0.9); MONOCYTES % 10.3 % (0.0-11.0); NEUTROPHIL # 3.3 10^3/ul (1.6-7.5); NEUTROPHILS % 54.8 % (39.0-77.0); PLATELET COUNT 445 10^3/UL (140-415); RED CELL DISTRIBUTION WIDTH 13.9 % (11.5-14.5)
[2018-11-10 07:07] LABS: INR 1.05; PROTIME 13.8 Sec (11.9-14.9); PT RATIO 1.1
[2018-11-10 07:13] LABS: PARTIAL THROMBOPLASTIN TIME 91.5 Sec (23.0-35.0)
[2018-11-10 07:22] LABS: ALANINE AMINOTRANSFERASE 67 IU/L (13-69); ALBUMIN/GLOBULIN RATIO 1.17; ALKALINE PHOSPHATASE 304 IU/L (42-121); ANION GAP 8 (5-13); ASPARTATE AMINO TRANSFERASE 45 IU/L (15-46); BILIRUBIN,INDIRECT 0.7 mg/dl (0-1.1); BILIRUBIN,TOTAL 0.7 mg/dl (0.2-1.3); BLOOD UREA NITROGEN 19 mg/dl (7-20); CALCIUM 9.1 mg/dl (8.4-10.2); CARBON DIOXIDE 27 mmol/L (21-31); CHLORIDE 104 mmol/L (97-110); CREATININE 0.75 mg/dl (0.44-1.00); Estimated GFR > 60 mL/min (>60); GLUCOSE 97 mg/dl (70-220); POTASSIUM 4.6 mmol/L (3.5-5.1); SODIUM 139 mmol/L (135-144); TOTAL PROTEIN 7.4 g/dl (6.1-8.1)
[2018-11-10] MEDS: IOHEXOL 14.3 MG(I)/ML (ADULT) BTL PO (07:36)
[2018-11-10] MEDS: [UNRECOGNIZED DRUG - REMARK] XX (07:43)
[2018-11-10] MEDS: IOHEXOL 300MG/ML 150 ML BTL (10:30)
[2018-11-10] MEDS: SOD CHLORIDE 0.9% 100 ML (10:30)
[2018-11-10] MEDS: HYDROCORTISONE 1% 28 GM CR TOP ×2 (11:02→21:24)
[2018-11-10] MEDS: SACCHAROMYCES BOULARDII 250 MG CAP PO ×2 (11:02→21:24)
[2018-11-10] MEDS: CHOLECALCIFEROL 2,000 UNIT CAP PO (11:02)
[2018-11-10] MEDS: GABAPENTIN 100 MG CAP PO ×3 (11:05→21:24)
[2018-11-10] MEDS: ACETAMINOPHEN 325 MG TAB PO ×2 (14:05→18:49)
[2018-11-10 15:18] LABS: PARTIAL THROMBOPLASTIN TIME 119.1 Sec (23.0-35.0)
[2018-11-10] MEDS: WARFARIN 3 MG TAB PO (17:33)
[2018-11-10 21:16] LABS: HEMATOCRIT 37.3 % (37.0-47.0); HEMOGLOBIN 12.1 g/dl (12.0-16.0)
[2018-11-10 21:36] LABS: PARTIAL THROMBOPLASTIN TIME 51.9 Sec (23.0-35.0)
[2018-11-11] MEDS: HEPARIN 25000 UNITS/250 ML 250 ML IV (00:28)
[2018-11-11] MEDS: PANTOPRAZOLE (EC) 40 MG TAB PO (05:48)
[2018-11-11 06:50] LABS: ADD MAN DIFF? NO
[2018-11-11 06:53] LABS: BASOPHIL # 0.1 10^3/ul (0.0-0.1); BASOPHILS % 1.3 % (0.0-2.0); EOSINOPHILS # 0.3 10^3/ul (0.0-0.5); EOSINOPHILS % 5.2 % (0.0-7.0); HEMATOCRIT 37.9 % (37.0-47.0); HEMOGLOBIN 12.2 g/dl (12.0-16.0); LYMPHOCYTES # 1.4 10^3/ul (0.8-2.9); MEAN CORPUSCULAR HEMOGLOBIN 29.1 pg (29.0-33.0); MEAN CORPUSCULAR HGB CONC 32.2 g/dl (32.0-37.0); MEAN CORPUSCULAR VOLUME 90.5 fl (82.0-101.0); MEAN PLATELET VOLUME 8.9 fl (7.4-10.4); MONOCYTE # 0.7 10^3/ul (0.3-0.9); MONOCYTES % 12.8 % (0.0-11.0); NEUTROPHIL # 2.7 10^3/ul (1.6-7.5); NEUTROPHILS % 51.8 % (39.0-77.0); PLATELET COUNT 436 10^3/UL (140-415); RED BLOOD COUNT 4.19 10^6/ul (4.20-5.40)
[2018-11-11 06:53] LABS: WHITE BLOOD COUNT 5.2 10^3/ul (4.8-10.8)
[2018-11-11 07:10] LABS: INR 1.19; PROTIME 15.2 Sec (11.9-14.9); PT RATIO 1.2
[2018-11-11 07:11] LABS: ALANINE AMINOTRANSFERASE 54 IU/L (13-69); ALBUMIN 4.1 g/dl (3.3-4.9); ALBUMIN/GLOBULIN RATIO 1.17; ALKALINE PHOSPHATASE 293 IU/L (42-121); ANION GAP 5 (5-13); ASPARTATE AMINO TRANSFERASE 38 IU/L (15-46); BILIRUBIN,INDIRECT 0.8 mg/dl (0-1.1); BILIRUBIN,TOTAL 0.8 mg/dl (0.2-1.3); BLOOD UREA NITROGEN 20 mg/dl (7-20); CALCIUM 9.1 mg/dl (8.4-10.2); CARBON DIOXIDE 31 mmol/L (21-31); CHLORIDE 102 mmol/L (97-110); CREATININE 0.87 mg/dl (0.44-1.00); Estimated GFR > 60 mL/min (>60); GLUCOSE 102 mg/dl (70-220); POTASSIUM 4.5 mmol/L (3.5-5.1); SODIUM 138 mmol/L (135-144); TOTAL PROTEIN 7.6 g/dl (6.1-8.1)
[2018-11-11 07:53] LABS: PARTIAL THROMBOPLASTIN TIME 95.4 Sec (23.0-35.0)
[2018-11-11] MEDS: GABAPENTIN 100 MG CAP PO ×3 (08:44→20:57)
[2018-11-11] MEDS: ACETAMINOPHEN 325 MG TAB PO ×2 (08:44→20:55)
[2018-11-11] MEDS: CHOLECALCIFEROL 2,000 UNIT CAP PO (08:44)
[2018-11-11] MEDS: SACCHAROMYCES BOULARDII 250 MG CAP PO ×2 (08:44→20:55)
[2018-11-11] MEDS: HYDROCORTISONE 1% 28 GM CR TOP ×2 (08:45→20:58)
[2018-11-11 15:16] LABS: PARTIAL THROMBOPLASTIN TIME 72.2 Sec (23.0-35.0)
[2018-11-11] MEDS: WARFARIN 3 MG TAB PO (17:08)
[2018-11-11 21:41] LABS: PARTIAL THROMBOPLASTIN TIME 60.4 Sec (23.0-35.0)
[2018-11-12 05:36] LABS: ADD MAN DIFF? NO
[2018-11-12 05:42] LABS: BASOPHIL # 0.1 10^3/ul (0.0-0.1); BASOPHILS % 1.2 % (0.0-2.0); EOSINOPHILS # 0.3 10^3/ul (0.0-0.5); EOSINOPHILS % 5.6 % (0.0-7.0); HEMATOCRIT 37.8 % (37.0-47.0); LYMPHOCYTES # 1.5 10^3/ul (0.8-2.9); LYMPHOCYTES % 31.5 % (15.0-51.0); MEAN CORPUSCULAR HEMOGLOBIN 28.8 pg (29.0-33.0); MEAN CORPUSCULAR HGB CONC 31.7 g/dl (32.0-37.0); MEAN CORPUSCULAR VOLUME 90.6 fl (82.0-101.0); MEAN PLATELET VOLUME 9.1 fl (7.4-10.4); MONOCYTE # 0.5 10^3/ul (0.3-0.9); MONOCYTES % 10.6 % (0.0-11.0); NEUTROPHIL # 2.4 10^3/ul (1.6-7.5); NEUTROPHILS % 49.7 % (39.0-77.0); PLATELET COUNT 449 10^3/UL (140-415); RED BLOOD COUNT 4.17 10^6/ul (4.20-5.40); RED CELL DISTRIBUTION WIDTH 13.8 % (11.5-14.5)
[2018-11-12 05:42] LABS: WHITE BLOOD COUNT 4.8 10^3/ul (4.8-10.8)
[2018-11-12] MEDS: PANTOPRAZOLE (EC) 40 MG TAB PO (05:57)
[2018-11-12 06:05] LABS: INR 1.35; PROTIME 16.8 Sec (11.9-14.9); PT RATIO 1.3
[2018-11-12 06:07] LABS: PARTIAL THROMBOPLASTIN TIME 58.5 Sec (23.0-35.0)
[2018-11-12] MEDS: SACCHAROMYCES BOULARDII 250 MG CAP PO ×2 (08:11→21:11)
[2018-11-12] MEDS: CHOLECALCIFEROL 2,000 UNIT CAP PO (08:11)
[2018-11-12] MEDS: GABAPENTIN 100 MG CAP PO ×3 (08:11→21:11)
[2018-11-12] MEDS: HYDROCORTISONE 1% 28 GM CR TOP ×2 (08:12→21:11)
[2018-11-12 11:21] LABS: PARTIAL THROMBOPLASTIN TIME 63.2 Sec (23.0-35.0)
[2018-11-12] MEDS: HEPARIN 25000 UNITS/250 ML 250 ML IV (14:30)
[2018-11-12] MEDS: WARFARIN 3 MG TAB PO (17:20)
[2018-11-12] MEDS: ACETAMINOPHEN 325 MG TAB PO (17:23)
[2018-11-13] MEDS: PANTOPRAZOLE (EC) 40 MG TAB PO (06:06)
[2018-11-13 06:44] LABS: ADD MAN DIFF? NO
[2018-11-13 06:48] LABS: BASOPHIL # 0.1 10^3/ul (0.0-0.1); BASOPHILS % 1.5 % (0.0-2.0); EOSINOPHILS # 0.2 10^3/ul (0.0-0.5); EOSINOPHILS % 5.1 % (0.0-7.0); HEMATOCRIT 36.1 % (37.0-47.0); HEMOGLOBIN 11.9 g/dl (12.0-16.0); LYMPHOCYTES # 1.5 10^3/ul (0.8-2.9); LYMPHOCYTES % 31.6 % (15.0-51.0); MEAN CORPUSCULAR VOLUME 90.9 fl (82.0-101.0); MEAN PLATELET VOLUME 8.9 fl (7.4-10.4); MONOCYTE # 0.5 10^3/ul (0.3-0.9); MONOCYTES % 11.5 % (0.0-11.0); NEUTROPHIL # 2.3 10^3/ul (1.6-7.5); NEUTROPHILS % 49.7 % (39.0-77.0); PLATELET COUNT 401 10^3/UL (140-415); RED BLOOD COUNT 3.97 10^6/ul (4.20-5.40); RED CELL DISTRIBUTION WIDTH 13.6 % (11.5-14.5)
[2018-11-13 06:48] LABS: WHITE BLOOD COUNT 4.7 10^3/ul (4.8-10.8)
[2018-11-13 07:13] LABS: INR 1.52; PROTIME 18.4 Sec (11.9-14.9); PT RATIO 1.4
[2018-11-13 08:51] LABS: PARTIAL THROMBOPLASTIN TIME 70.8 Sec (23.0-35.0)
[2018-11-13] MEDS: CHOLECALCIFEROL 2,000 UNIT CAP PO (09:04)
[2018-11-13] MEDS: HYDROCORTISONE 1% 28 GM CR TOP ×2 (09:05→20:33)
[2018-11-13] MEDS: GABAPENTIN 100 MG CAP PO ×3 (09:05→20:33)
[2018-11-13] MEDS: SACCHAROMYCES BOULARDII 250 MG CAP PO ×2 (09:05→20:33)
[2018-11-13] MEDS: HEPARIN 25000 UNITS/250 ML 250 ML IV ×3 (09:10→23:33)
[2018-11-13] MEDS ORDERED: DIPHENHYDRAMINE 50 MG INJ IM (10:00)
[2018-11-13 11:44] LABS: ANION GAP 7 (5-13); BLOOD UREA NITROGEN 21 mg/dl (7-20); CALCIUM 8.7 mg/dl (8.4-10.2); CARBON DIOXIDE 26 mmol/L (21-31); CHLORIDE 105 mmol/L (97-110); CREATININE 0.66 mg/dl (0.44-1.00); Estimated GFR > 60 mL/min (>60); GLUCOSE 94 mg/dl (70-220); POTASSIUM 4.6 mmol/L (3.5-5.1); SODIUM 138 mmol/L (135-144)
[2018-11-13] MEDS: ACETAMINOPHEN 325 MG TAB PO (15:42)
[2018-11-13 16:09] LABS: PARTIAL THROMBOPLASTIN TIME 52.8 Sec (23.0-35.0)
[2018-11-13] MEDS: WARFARIN 3 MG TAB PO (17:20)
[2018-11-13 23:07] LABS: PARTIAL THROMBOPLASTIN TIME 50.7 Sec (23.0-35.0)
[2018-11-14 06:07] LABS: ADD MAN DIFF? NO
[2018-11-14] MEDS: PANTOPRAZOLE (EC) 40 MG TAB PO (06:17)
[2018-11-14 06:34] LABS: BASOPHIL # 0.1 10^3/ul (0.0-0.1); BASOPHILS % 1.2 % (0.0-2.0); EOSINOPHILS # 0.2 10^3/ul (0.0-0.5); EOSINOPHILS % 4.4 % (0.0-7.0); HEMATOCRIT 36.8 % (37.0-47.0); HEMOGLOBIN 11.9 g/dl (12.0-16.0); LYMPHOCYTES # 1.6 10^3/ul (0.8-2.9); LYMPHOCYTES % 31.3 % (15.0-51.0); MEAN CORPUSCULAR HEMOGLOBIN 29.1 pg (29.0-33.0); MEAN CORPUSCULAR HGB CONC 32.3 g/dl (32.0-37.0); MEAN PLATELET VOLUME 9.3 fl (7.4-10.4); MONOCYTE # 0.5 10^3/ul (0.3-0.9); MONOCYTES % 10.6 % (0.0-11.0); NEUTROPHIL # 2.6 10^3/ul (1.6-7.5); NEUTROPHILS % 51.9 % (39.0-77.0); PLATELET COUNT 407 10^3/UL (140-415); RED BLOOD COUNT 4.09 10^6/ul (4.20-5.40); RED CELL DISTRIBUTION WIDTH 13.5 % (11.5-14.5)
[2018-11-14 06:58] LABS: ANION GAP 7 (5-13); BLOOD UREA NITROGEN 20 mg/dl (7-20); CALCIUM 9.1 mg/dl (8.4-10.2); CARBON DIOXIDE 27 mmol/L (21-31); CHLORIDE 104 mmol/L (97-110); CREATININE 0.71 mg/dl (0.44-1.00); Estimated GFR > 60 mL/min (>60); GLUCOSE 100 mg/dl (70-220); POTASSIUM 4.2 mmol/L (3.5-5.1); SODIUM 138 mmol/L (135-144)
[2018-11-14 07:28] LABS: PARTIAL THROMBOPLASTIN TIME 107.7 Sec (23.0-35.0)
[2018-11-14 07:45] LABS: INR 1.65; PROTIME 19.6 Sec (11.9-14.9); PT RATIO 1.5
[2018-11-14] MEDS: CHOLECALCIFEROL 2,000 UNIT CAP PO (08:21)
[2018-11-14] MEDS: ACETAMINOPHEN 325 MG TAB PO (08:21)
[2018-11-14] MEDS: GABAPENTIN 100 MG CAP PO ×3 (08:21→20:59)
[2018-11-14] MEDS: SACCHAROMYCES BOULARDII 250 MG CAP PO ×2 (08:21→20:58)
[2018-11-14] MEDS: HYDROCORTISONE 1% 28 GM CR TOP ×2 (08:22→20:59)
[2018-11-14 09:02] LABS: PARTIAL THROMBOPLASTIN TIME 93.6 Sec (23.0-35.0)
[2018-11-14] MEDS: HEPARIN 25000 UNITS/250 ML 250 ML IV ×2 (09:14→18:09)
[2018-11-14] MEDS ORDERED: hydrALAzine 20 MG INJ IV (16:30)
[2018-11-14] MEDS: WARFARIN 3 MG TAB PO (16:31)
[2018-11-14 17:47] LABS: PARTIAL THROMBOPLASTIN TIME 72.4 Sec (23.0-35.0)
[2018-11-15 00:20] LABS: PARTIAL THROMBOPLASTIN TIME 67.9 Sec (23.0-35.0)
[2018-11-15] MEDS: PANTOPRAZOLE (EC) 40 MG TAB PO (05:42)
[2018-11-15 07:01] LABS: INR 1.81; PROTIME 21.1 Sec (11.9-14.9); PT RATIO 1.6
[2018-11-15 07:02] LABS: PARTIAL THROMBOPLASTIN TIME 58.5 Sec (23.0-35.0)
[2018-11-15] MEDS: GABAPENTIN 100 MG CAP PO ×2 (08:11→12:52)
[2018-11-15] MEDS: CHOLECALCIFEROL 2,000 UNIT CAP PO (08:11)
[2018-11-15] MEDS: SACCHAROMYCES BOULARDII 250 MG CAP PO ×2 (08:11→21:02)
[2018-11-15] MEDS: HYDROCORTISONE 1% 28 GM CR TOP ×2 (09:58→21:02)
[2018-11-15] MEDS: ACETAMINOPHEN 325 MG TAB PO ×2 (12:52→21:09)
[2018-11-15] MEDS ORDERED: hydrOXYzine HCL 10 MG TAB PO (15:00)
[2018-11-15] MEDS: WARFARIN 3 MG TAB PO (16:30)
[2018-11-16 06:22] LABS: ADD MAN DIFF? NO
[2018-11-16] MEDS: PANTOPRAZOLE (EC) 40 MG TAB PO (06:25)
[2018-11-16 06:38] LABS: WHITE BLOOD COUNT 5.1 10^3/ul (4.8-10.8)
[2018-11-16 06:38] LABS: BASOPHIL # 0.1 10^3/ul (0.0-0.1); BASOPHILS % 1.4 % (0.0-2.0); EOSINOPHILS # 0.2 10^3/ul (0.0-0.5); EOSINOPHILS % 4.4 % (0.0-7.0); HEMATOCRIT 36.7 % (37.0-47.0); LYMPHOCYTES # 1.7 10^3/ul (0.8-2.9); LYMPHOCYTES % 34.3 % (15.0-51.0); MEAN CORPUSCULAR HEMOGLOBIN 29.3 pg (29.0-33.0); MEAN CORPUSCULAR HGB CONC 32.7 g/dl (32.0-37.0); MEAN CORPUSCULAR VOLUME 89.5 fl (82.0-101.0); MEAN PLATELET VOLUME 9.2 fl (7.4-10.4); MONOCYTE # 0.5 10^3/ul (0.3-0.9); MONOCYTES % 10.1 % (0.0-11.0); NEUTROPHIL # 2.5 10^3/ul (1.6-7.5); PLATELET COUNT 357 10^3/UL (140-415); RED CELL DISTRIBUTION WIDTH 13.6 % (11.5-14.5)
[2018-11-16 07:03] LABS: INR 1.98; PROTIME 22.6 Sec (11.9-14.9); PT RATIO 1.8
[2018-11-16] MEDS: SACCHAROMYCES BOULARDII 250 MG CAP PO ×2 (08:37→21:20)
[2018-11-16] MEDS: DOCUSATE SODIUM 100 MG CAP PO (08:37)
[2018-11-16] MEDS: CHOLECALCIFEROL 2,000 UNIT CAP PO (08:37)
[2018-11-16 08:38] LABS: HAAIG REFLEX REFLEX FILED
[2018-11-16] MEDS: CYCLOBENZAPRINE 10 MG TAB PO (08:38)
[2018-11-16] MEDS: HEPARIN 25000 UNITS/250 ML 250 ML IV (08:43)
[2018-11-16] MEDS: HYDROCORTISONE 1% 28 GM CR TOP ×2 (09:00→21:20)
[2018-11-16 09:30] LABS: GAMMA GLUTAMYL TRANSPEPTIDASE 278 IU/L (0-50)
[2018-11-16 14:33] LABS: HEPATITIS B SURFACE ANTIGEN NEGATIVE (NEGATIVE)
[2018-11-16 14:51] LABS: HEPATITIS B CORE ANTIBODY NEGATIVE (NEGATIVE); HEPATITIS C VIRAL ANTIBODY NEGATIVE (NEGATIVE)
[2018-11-16] MEDS: WARFARIN 3 MG TAB PO (18:11)
[2018-11-17] MEDS: PANTOPRAZOLE (EC) 40 MG TAB PO (06:26)
[2018-11-17 07:20] LABS: ALANINE AMINOTRANSFERASE 41 IU/L (13-69); ALBUMIN 4.3 g/dl (3.3-4.9); ALBUMIN/GLOBULIN RATIO 1.13; ALKALINE PHOSPHATASE 182 IU/L (42-121); ANION GAP 10 (5-13); ASPARTATE AMINO TRANSFERASE 48 IU/L (15-46); BILIRUBIN,INDIRECT 0.8 mg/dl (0-1.1); BILIRUBIN,TOTAL 0.8 mg/dl (0.2-1.3); BLOOD UREA NITROGEN 20 mg/dl (7-20); CALCIUM 9.3 mg/dl (8.4-10.2); CARBON DIOXIDE 28 mmol/L (21-31); CHLORIDE 102 mmol/L (97-110); Estimated GFR > 60 mL/min (>60); GLUCOSE 96 mg/dl (70-220); POTASSIUM 4.8 mmol/L (3.5-5.1); SODIUM 140 mmol/L (135-144); TOTAL PROTEIN 8.1 g/dl (6.1-8.1)
[2018-11-17 07:21] LABS: INR 2.04; PROTIME 23.1 Sec (11.9-14.9); PT RATIO 1.8
[2018-11-17] MEDS: DOCUSATE SODIUM 100 MG CAP PO (09:31)
[2018-11-17] MEDS: SACCHAROMYCES BOULARDII 250 MG CAP PO (09:31)
[2018-11-17] MEDS: CHOLECALCIFEROL 2,000 UNIT CAP PO (09:32)
[2018-11-17] MEDS: HYDROCORTISONE 1% 28 GM CR TOP (09:32)
== END 2018-11-17 16:37 | disposition home or self-care (01) | DRG 580 ==
LOC: SDS 07:10 → 6WM 10-31 13:28 → SDS 07:10 → REC 14:08 → PP2 17:56
PROC: 0HBU0ZZ Excision of Left Breast, Open Approach (ICD-10-PCS; principal; 2018-10-27 10:30)
PROC: 07B60ZX Excision of Left Axillary Lymphatic, Open Approach, Diagnostic (ICD-10-PCS; 2018-10-27 10:30)
PROC: 30233N1 Transfusion of Nonautologous Red Blood Cells into Peripheral Vein, Percutaneous Approach (ICD-10-PCS; 2018-10-27 12:09)
DX: C50.912 Malignant neoplasm of unspecified site of left female breast (principal); L76.32 Postprocedural hematoma of skin and subcutaneous tissue following other procedure; D62 Acute posthemorrhagic anemia; Z95.2 Presence of prosthetic heart valve; I48.0 Paroxysmal atrial fibrillation; E78.5 Hyperlipidemia, unspecified; R50.82 Postprocedural fever; I05.2 Rheumatic mitral stenosis with insufficiency; E55.9 Vitamin D deficiency, unspecified; Z79.01 Long term (current) use of anticoagulants; I10 Essential (primary) hypertension; K59.09 Other constipation
CPT/HCPCS: 36430; 70450; 71045; 71260; 73200; 74176; 74177; 76705; 80048; 80053; 80202; 81001; 81003; 82565; 82652; 82977; 83605; 84145; 84520; 85014; 85018; 85025; 85610; 85730; 86078; 86644; 86704; 86709; 86803; 86850; 86900; 86901; 86920; 87040-91; 87070; 87086; 87340; 88307; 88331; 88342; 97110; 97116; 97162; 97167; 97530; 97535

== ENCOUNTER 2019-01-20 09:39 | Day surgery (SDC) | payer BC ==
[2019-01-20 10:48] LABS: ADD MAN DIFF? NO
[2019-01-20 10:58] LABS: WHITE BLOOD COUNT 6.1 10^3/ul (4.8-10.8)
[2019-01-20 10:58] LABS: BASOPHIL # 0.1 10^3/ul (0.0-0.1); BASOPHILS % 0.8 % (0.0-2.0); EOSINOPHILS # 0.1 10^3/ul (0.0-0.5); EOSINOPHILS % 1.3 % (0.0-7.0); HEMATOCRIT 41.2 % (37.0-47.0); HEMOGLOBIN 13.4 g/dl (12.0-16.0); LYMPHOCYTES # 1.2 10^3/ul (0.8-2.9); LYMPHOCYTES % 19.4 % (15.0-51.0); MEAN CORPUSCULAR HEMOGLOBIN 29.5 pg (29.0-33.0); MEAN CORPUSCULAR HGB CONC 32.5 g/dl (32.0-37.0); MEAN CORPUSCULAR VOLUME 90.5 fl (82.0-101.0); MEAN PLATELET VOLUME 9.8 fl (7.4-10.4); MONOCYTE # 0.5 10^3/ul (0.3-0.9); MONOCYTES % 8.2 % (0.0-11.0); NEUTROPHIL # 4.3 10^3/ul (1.6-7.5); NEUTROPHILS % 69.8 % (39.0-77.0); PLATELET COUNT 185 10^3/UL (140-415); RED BLOOD COUNT 4.55 10^6/ul (4.20-5.40); RED CELL DISTRIBUTION WIDTH 13.6 % (11.5-14.5)
[2019-01-20] MEDS: SOD CHLORIDE 0.9% 1,000 ML IV (11:02)
[2019-01-20 11:07] LABS: ALANINE AMINOTRANSFERASE 189 IU/L (13-69); ALBUMIN 4.2 g/dl (3.3-4.9); ALBUMIN/GLOBULIN RATIO 1.23; ALKALINE PHOSPHATASE 222 IU/L (42-121); ANION GAP 6 (5-13); ASPARTATE AMINO TRANSFERASE 49 IU/L (15-46); BILIRUBIN,INDIRECT 1.1 mg/dl (0-1.1); BILIRUBIN,TOTAL 1.1 mg/dl (0.2-1.3); BLOOD UREA NITROGEN 14 mg/dl (7-20); CALCIUM 8.9 mg/dl (8.4-10.2); CARBON DIOXIDE 31 mmol/L (21-31); CHLORIDE 104 mmol/L (97-110); CREATININE 0.76 mg/dl (0.44-1.00); Estimated GFR > 60 mL/min (>60); GLUCOSE 122 mg/dl (70-220); POTASSIUM 4.3 mmol/L (3.5-5.1); SODIUM 141 mmol/L (135-144); TOTAL PROTEIN 7.6 g/dl (6.1-8.1)
[2019-01-20 11:08] LABS: INR 1.21; PROTIME 15.4 Sec (11.9-14.9); PT RATIO 1.2
[2019-01-20] MEDS ORDERED: IPRATROPIUM (NEB) 0.5 MG/2.5 ML AMP HHN (12:00)
[2019-01-20] MEDS ORDERED: LABETALOL HCL 20MG INJ IV (12:00)
[2019-01-20] MEDS ORDERED: DIPHENHYDRAMINE 50 MG INJ IV (12:00)
[2019-01-20] MEDS ORDERED: hydrALAzine 20 MG INJ IV (12:00)
[2019-01-20] MEDS ORDERED: MIDAZOLAM 1 MG/ML 2 ML INJ IV (12:00)
[2019-01-20] MEDS ORDERED: EPHEDrine 25 MG/5 ML SYG IV (12:00)
[2019-01-20] MEDS ORDERED: HYDROmorphONE 1 MG/5 ML IV SYRINGE IV ×3 (12:00)
[2019-01-20] MEDS ORDERED: FENTAnyl 50 MCG/ML VIAL IV ×3 (12:00)
[2019-01-20] MEDS ORDERED: TRIMETHOBENZAMIDE 100 MG/ML VIAL IM (12:00)
[2019-01-20] MEDS ORDERED: ALBUTEROL 0.083% (NEB) 2.5 MG/3 ML AMP HHN (12:00)
[2019-01-20] MEDS ORDERED: OXYCODONE/ACETAMINOPHEN (5/325) TAB PO ×2 (12:00)
[2019-01-20] MEDS ORDERED: MEPERIDINE 25 MG INJ IV (12:00)
[2019-01-20] MEDS ORDERED: SUCCINYLCHOLINE CHLORIDE 100 MG/5 ML SYG IV ×2 (12:32→13:17)
[2019-01-20] MEDS ORDERED: ETOMIDATE 20 MG INJ (12:32)
[2019-01-20] MEDS ORDERED: ROCURONIUM 50 MG INJ (12:32)
[2019-01-20] MEDS ORDERED: HYDROmorphONE 2 MG/ML SYG (12:32)
[2019-01-20] MEDS ORDERED: DEXAMETHASONE 4 MG/ML 5 ML INJ (12:36)
[2019-01-20] MEDS ORDERED: ONDANSETRON 4 MG INJ (12:36)
[2019-01-20] MEDS ORDERED: SUGAMMADEX SODIUM 200 MG/2 ML VIAL IV (13:18)
[2019-01-20] MEDS: ONDANSETRON 4 MG INJ IV (14:58)
== END 2019-01-20 18:40 | disposition home or self-care (01) ==
LOC: SDS 09:39
DX: L76.32 Postprocedural hematoma of skin and subcutaneous tissue following other procedure (principal); Y83.8 Other surgical procedures as the cause of abnormal reaction of the patient, or of later complication, without mention of misadventure at the time of the procedure; N64.89 Other specified disorders of breast; Z79.01 Long term (current) use of anticoagulants; Z85.3 Personal history of malignant neoplasm of breast
CPT/HCPCS: 10140; 80053; 85025; 85610; 85730